=== PATIENT | male | born 1980 | race Caucasian/White ===

== ENCOUNTER 2017-05-14 13:14 | Emergency (ER) | payer MEDICAID ==
[~2017-05-14] VITALS: Ht 157.5 cm; Wt 62.5 kg
[2017-05-14 13:24] VITALS: Ht 157.5 cm; Wt 62.5 kg
[2017-05-14 14:08] LABS: URINE BLOOD (Dip) POC Trace-intact (NEGATIVE)
--- NOTE | 2017-05-14 14:12 | ERD ---
ER Documentation Chief Complaint Chief Complaint PAINFUL, FREQUENT URINATION X3 DAYS HPI Patient is a 37-year-old male who presents with increased urinary frequency and states there is warmth when he urinates. No hematuria. No fever. No nausea or vomiting. No trauma. No pain at rest. Denies any recent unprotected sex and states he is with one partner. He states he is not diabetic. Denies any testicular pain or swelling ROS All systems reviewed and are negative except as per history of present illness. Allergies Allergies: Coded Allergies: No Known Allergy (Unverified , 05/14/17) FmHx Family History: No diabetes Physical Exam Vitals Vital Signs Date Time Temp Pulse Resp B/P Pulse Ox O2 Delivery O2 Flow Rate FiO2 05/14/17 13:24 98.4 73 18 129/70 98 Physical Exam INITIAL VITAL SIGNS: Reviewed by me GENERAL: Awake, alert and oriented x 4, well appearing, nontoxic, speaking in full sentences. No acute distress HEAD: Atraumatic RESPIRATORY: Clear to auscultation bilaterally. Symmetric chest wall rise. No wheezing or rales. No accessory muscle use. CV: Regular rate and rhythm. No murmurs, rubs, or gallops. ABDOMEN: Soft, non-distended. Nontender. Negative Redkey. Negative McBurneys point tenderness. No CVA tenderness bilaterally. No guarding. No rebound. : Deffered. Results 24 hrs Laboratory Tests Test 05/14/17 14:08 05/14/17 14:19 Bedside Urine pH (LAB) 5.5 Bedside Urine Protein (LAB) Negative Bedside Urine Glucose (UA) Negative Bedside Urine Ketones (LAB) Trace Bedside Urine Blood Trace-intact Bedside Urine Nitrite (LAB) Negative Bedside Urine Leukocyte Esterase (L Negative Bedside Glucose 137mg/dL Procedures/MDM Patient presents with dysuria and increased urinary frequency. Patients is alert, oriented, well appearing, and in no distress with normal vital signs. There is no fever, tachycardia, or tachypnea. Patient has no pain at rest and his GI examination is benign. Accu-Chek was ordered as well as urine dip and urine culture. Urine dip showed no evidence of infection however given he is symptomatic I will treat him outpatient with Cipro. Patient counseled regarding my diagnostic impression and care plan. Prior to discharge all questions answered. Pt agrees with treatment plan and understands strict return precautions. Pt is instructed to follow up with primary care provider within 24- 48 hours. Precautionary instructions provided including instructions to return to the ER if not improving or for any worsening or changing symptoms or concerns. Departure Diagnosis: Primary Impression: Dysuria Condition: Stable MIGUEL TOLENTINO PA-C May 14, 2017 14:11
[2017-05-14] MEDS ORDERED: CIPR500T4 PO (14:28)
== END 2017-05-14 14:56 | disposition home or self-care (01) ==
LOC: FTE 13:14
DX: R30.0 Dysuria (principal)
CPT/HCPCS: 81003; 82962; 87086; Z7502; 99283

== ENCOUNTER 2018-04-15 11:31 | Emergency (ER) | END 2018-04-15 14:38 | disposition home or self-care (01) ==

== ENCOUNTER 2018-10-27 | Emergency (ER) | payer MEDICAID ==
[~2018-10-27] VITALS: Ht 154.9 cm; Wt 65.3 kg
[~2018-10-27] MED LIST: AMOX1TAB10 PO; CIPR500T4 PO; GUAI-227 PO; IBUP800T48 PO; ONDA4TAB8 PO
[2018-10-27 00:25] VITALS: Ht 154.9 cm; Wt 65.3 kg
[2018-10-27] MEDS ORDERED: KETOROLAC 30 MG INJ IM STA (07:19)
--- NOTE | 2018-10-27 07:21 | ERD ---
ER Documentation Chief Complaint Chief Complaint headache/body aches x 1 day HPI 38-year-old male, previously healthy, presents to the emergency department, complaining of 1 day with headache, predominantly on the right side, band like radiated, associated with arthralgias and general malaise. He denies fevers, no chills, no blurred vision, no distal weakness, numbness or tingling. The patient took Motrin last night with mild improvement of the symptoms. ROS All systems reviewed and are negative except as per history of present illness. Medications Home Meds Active Scripts Ibuprofen* (Motrin*) 400 Mg Tab, 400 MG PO Q6H PRN for PAIN AND OR ELEVATED TEMP, #30 TAB Prov:MAXI BROWNING MD 10/27/18 Acetaminophen* (Tylenol*) 325 Mg Tablet, 2 TAB PO Q6 PRN for PAIN AND OR ELEVATED TEMP, #20 TAB Prov:MAXI BROWNING MD 10/27/18 Guaifenesin-Dextromethorphan* (Robafen* DM) 100MG/10MG/5ML Liquid, 5 ML PO Q6H PRN for COUGH, #6 OZ Prov:MILAD RENTERIALOYDA Nba 04/15/18 Ondansetron Hcl* (Zofran*) 4 Mg Tablet, 4 MG PO Q8H PRN for NAUSEA AND/OR VOMITING, #30 TAB Prov:RACHELKAYVARUN Arango 04/15/18 Ibuprofen* (Motrin*) 800 Mg Tab, 800 MG PO Q6H PRN for PAIN AND OR ELEVATED TEMP, #30 TAB Prov:VARUN RENTERIA Nba 04/15/18 Amoxicillin/Potassium Clav (Amox-Clav 875-125 mg Tablet) 875-125 mg Tab, 1 TAB PO BID for 7 Days, #14 TAB Prov:SALINASMILAD SIMONLOYDA Arango 04/15/18 Ciprofloxacin Hcl* (Ciprofloxacin Hcl*) 500 Mg Tablet, 500 MG PO BID for 5 Days, TAB Prov:MIGUEL TOLENTINO PA-C 05/14/17 Allergies Allergies: Coded Allergies: No Known Allergy (Unverified , 10/27/18) PMhx/Soc Medical and Surgical Hx: pt denies Medical Hx, pt denies Surgical Hx Hx Alcohol Use: No Hx Substance Use: No Hx Tobacco Use: No FmHx Family History: No diabetes, No coronary disease Physical Exam Vitals Vital Signs Date Temp Pulse Resp B/P (MAP) Pulse Ox O2 O2 Flow FiO2 Time Delivery Rate 10/27/18 98.1 60 18 121/83 99 Room Air 07:57 (96) 10/27/18 98.5 77 18 121/91 97 00:25 (101) Physical Exam Const: No acute distress Head: Atraumatic Eyes: Normal Conjunctiva ENT: Normal External Ears, Nose and Mouth. Neck: Full range of motion. No meningismus. Resp: Clear to auscultation bilaterally Cardio: Regular rate and rhythm, no murmurs Abd: Soft, non tender, non distended. Normal bowel sounds Skin: No petechiae or rashes Back: No midline or flank tenderness Ext: No cyanosis, or edema Neur: Awake and alert Psych: Normal Mood and Affect Result Diagram: 10/27/18 0734 10/27/18 0734 Results 24 hrs Laboratory Tests Test 10/27/18 07:34 10/27/18 07:37 White Blood Count 6.3 10^3/ul Red Blood Count 4.89 10^6/ul Hemoglobin 15.0 g/dl Hematocrit 42.9 % Mean Corpuscular Volume 87.7 fl Mean Corpuscular Hemoglobin 30.7 pg Mean Corpuscular Hemoglobin Concent 35.0 g/dl Red Cell Distribution Width 11.7 % Platelet Count 168 10^3/UL Mean Platelet Volume 9.6 fl Immature Granulocytes % 0.500 % Neutrophils % 72.8 % Lymphocytes % 14.8 % Monocytes % 10.5 % Eosinophils % 1.1 % Basophils % 0.3 % Nucleated Red Blood Cells % 0.0 /100WBC Immature Granulocytes # 0.030 10^3/ul Neutrophils # 4.6 10^3/ul Lymphocytes # 0.9 10^3/ul Monocytes # 0.7 10^3/ul Eosinophils # 0.1 10^3/ul Basophils # 0.0 10^3/ul Nucleated Red Blood Cells # 0.0 10^3/ul Sodium Level 141 mmol/L Potassium Level 4.1 mmol/L Chloride Level 104 mmol/L Carbon Dioxide Level 28 mmol/L Anion Gap 9 Blood Urea Nitrogen 14 mg/dl Creatinine 0.73 mg/dl Est Glomerular Filtrat Rate mL/min > 60 mL/min Glucose Level 103 mg/dl Calcium Level 9.5 mg/dl Urine Color YELLOW Urine Clarity CLEAR Urine pH 5.0 Urine Specific [place] 1.016 Urine Ketones NEGATIVE mg/dL Urine Nitrite NEGATIVE mg/dL Urine Bilirubin NEGATIVE mg/dL Urine Urobilinogen NEGATIVE mg/dL Urine Leukocyte Esterase NEGATIVE Carmen/ul Urine Hemoglobin NEGATIVE mg/dL Urine Glucose NEGATIVE mg/dL Urine Total Protein NEGATIVE mg/dl Current Medications Medications Dose Sig/Mona Start Time Status Last (Trade) Ordered Route PRN Stop Time Admin Dose Reason Admin Ketorolac 30 mg ONCE STAT 10/27/18 DC 10/27/18 Tromethamine IM 07:19 10/27/18 07:36 (Toradol) 07:32 1 tab ONCE ONCE 10/27/18 DC 10/27/18 Acetaminophen PO 07:30 10/27/18 07:36 / 07:32 Hydrocodone Bitart ([place] (5/325)) Procedures/MDM Vital signs stable, Physical exam unremarkable, neurovascular exam intact. Differential diagnosis include but not limited to: Classical migraine, sinusitis, visual corrective problems, side effects of medications, dehydration, electrolyte imbalance, endocrine/autoimmune medical condition, stress, anxiety, tension headache. Low suspicion for meningitis, [employer]GEON tumor, cerebrovascular event. Physical examination and clinical presentation consistent most likely with tension headache. During the ED course the patient remained stable, no new complaints. The patient received treatment with Toradol IM presenting overall improvement of the symptoms. Results and clinical impression discussed with patient who agrees with management. The patient is stable to be treated outpatient and will be discharged home, some side effects of prescribed medications (headache, rash, nausea, vomiting, diarrhea, drowsiness, habituation, bleeding, hypertension, interactions with other medications) were reviewed. Follow up with the primary care provider in the next 48h has been recommended. If symptoms persist, worsen or new symptoms develop, then patient should return to the ED immediately. Instructions explained and given directly by me to the patient with acknowledgment and demonstrated understanding. Disclaimer: Inadvertent spelling and grammatical errors are likely due to EHR/dictation software use and do not reflect on the overall quality of patient care. Also, please note that the electronic time recorded on this note does not necessarily reflect the actual time of the patient encounter. Departure Diagnosis: Primary Impression: Tension headache Condition: Stable Additional Instructions: Thank you very much for allowing us to participate in your care. Your health and safety is our top priority at [facility]. Call your primary care doctor TOMORROW for an appointment during the next 2-4 days and bring all the information and medications prescribed. Have prescriptions filled and follow precisely the directions on the label. If the symptoms get worse and your provider is unavailable, return to the Emergency Department immediately. MAXI BROWNING MD Oct 27, 2018 07:21
[2018-10-27] MEDS ORDERED: IBUP-1561 PO (07:24)
[2018-10-27] MEDS ORDERED: ACET325T33 PO (07:24)
[2018-10-27] MEDS ORDERED: HYDROCODONE/APAP (5/325) TAB PO ONE (07:30)
[2018-10-27 07:57] VITALS: BP 121/83; PULSE 60; RESP 18
== END 2018-10-27 08:15 | disposition home or self-care (01) ==
LOC: FTE
DX: G44.209 Tension-type headache, unspecified, not intractable (principal)
CPT/HCPCS: 36415; 80048; 81003; 85025; 96372; J1885; Z7502; Z7610